=== PATIENT | female | born 1990 | race Caucasian/White ===

== ENCOUNTER 2017-03-11 01:53 | Observation (INO) | payer BC ==
[2017-03-11] VITALS (20 sets, daily range): BP systolic 92–138; BP diastolic 50–80; PULSE 62–110; RESP 15–20; TEMP 98.2; Ht 162.6 cm; Wt 66.0 kg
[~2017-03-11] VITALS: Ht 162.6 cm; Wt 66.0 kg
[2017-03-11] MEDS ORDERED: ONDANSETRON 4 MG INJ IV STA (02:27)
[2017-03-11] MEDS ORDERED: SOD CHLORIDE 0.9% 1,000 ML IV STA (02:27)
[2017-03-11] MEDS ORDERED: HYDROmorphONE 1 MG/ML SYG IV STA ×2 (02:27→06:15)
[2017-03-11 02:47] LABS: ADD SCAN DIFF NO
[2017-03-11 02:52] LABS: BASOPHILS % 0.2 % (0.0-2.0); EOSINOPHILS # 0.3 10^3/ul (0.0-0.5); EOSINOPHILS % 2.6 % (0.0-7.0); HEMATOCRIT 42.8 % (37.0-47.0); HEMOGLOBIN 14.6 g/dl (12.0-16.0); LYMPHOCYTES # 1.8 10^3/ul (0.8-2.9); LYMPHOCYTES % 14.6 % (15.0-51.0); MEAN CORPUSCULAR HGB CONC 34.1 g/dl (32.0-37.0); MEAN CORPUSCULAR VOLUME 88.1 fl (82.0-101.0); MEAN PLATELET VOLUME 10.3 fl (7.4-10.4); MONOCYTE # 0.7 10^3/ul (0.3-0.9); MONOCYTES % 5.4 % (0.0-11.0); NEUTROPHIL # 9.6 10^3/ul (1.6-7.5); NEUTROPHILS % 76.8 % (39.0-77.0); PLATELET COUNT 207 10^3/UL (140-415); RED BLOOD COUNT 4.86 10^6/ul (4.20-5.40); RED CELL DISTRIBUTION WIDTH 11.7 % (11.5-14.5); WHITE BLOOD COUNT 12.5 10^3/ul (4.8-10.8)
[2017-03-11] MEDS ORDERED: IBUP200C11 PO (02:55)
[2017-03-11 03:08] LABS: ALBUMIN 4.9 g/dl (3.3-4.9)
[2017-03-11 03:09] LABS: POTASSIUM 3.4 mmol/L (3.5-5.1)
[2017-03-11 03:11] LABS: BILIRUBIN,INDIRECT 0.3 mg/dl (0-1.1); BILIRUBIN,TOTAL 0.3 mg/dl (0.2-1.3); CREATININE 0.82 mg/dl (0.44-1.00)
[2017-03-11] MEDS ORDERED: SOD CHLORIDE 0.9% 100 ML ONE (03:11)
[2017-03-11] MEDS ORDERED: IOHEXOL 300MG/ML 150 ML BTL ONE (03:11)
[2017-03-11 03:12] LABS: ALBUMIN/GLOBULIN RATIO 1.44; CALCIUM 9.5 mg/dl (8.4-10.2); TOTAL PROTEIN 8.3 g/dl (6.1-8.1)
[2017-03-11 03:27] LABS: ADD UMIC YES; URINE BILIRUBIN (Dip) NEGATIVE (NEGATIVE); URINE BLOOD (Dip) TRACE (NEGATIVE); URINE COLOR LT. YELLOW (YELLOW); URINE GLUCOSE (Dip) NEGATIVE (NEGATIVE); URINE KETONES (Dip) NEGATIVE (NEGATIVE); URINE LEUKOCYTE ESTERASE (Dip) NEGATIVE (NEGATIVE); URINE NITRITE (Dip) NEGATIVE (NEGATIVE); URINE TOTAL PROTEIN (Dip) NEGATIVE (NEGATIVE); URINE UROBILINOGEN (Dip) 0.2 E.U./dL (0.1-1.0)
[2017-03-11 03:45] LABS: URINE RBCS 0-2 /HPF (0)
[2017-03-11 03:46] LABS: BACTERIA,URINE OCCASIONAL; SQUAMOUS EPITHELIAL CELL,UR MANY
--- NOTE | 2017-03-11 04:33 | RADRPT ---
PROCEDURE: CT Abdomen and pelvis with contrast. CLINICAL INDICATION: Abdominal pain. TECHNIQUE: CT scan of the abdomen and pelvis with contrast was performed on a multi-detector high -resolution CT scanner. The patient was scanned following the uncomplicated administration of 100 c c of Omnipaque 300 intravenous contrast. Coronal and sagittal reformatted images were obtained from the axial source images. Images were reviewed on a high-resolution PACS workstation. One or more of the following dose reduction techniques were used: - Automated exposure control. - Adjustment of the mA and/or kV according to patient size. - Use of iterative reconstruction technique. Exam CTD/vol = 9.51 mGy. Total exam DLP = 529.68 mGy-cm. COMPARISON: None. FINDINGS: Evaluation of the lung bases demonstrates no pleural or parenchymal disease. Abdomen: The liver is normal in size. There is no focal mass or dilatation of the biliary tree. T he gallbladder is not distended. The spleen, pancreas and bilateral adrenal glands are within nilesh l limits. Bilateral kidneys are normal in size with symmetric enhancement. There is no focal mass, hydronephrosis or hydroureter. There is no retroperitoneal adenopathy. The abdominal aorta is of normal caliber. There is a distended and fluid filled appendix extending medial and inferior to the cecum measuring up to 11 mm in diameter with mild adjacent stranding. There is an appendicolith within the distal a ppendix measuring 5 x 4 mm. There is no bowel obstruction or free air. There is no diverticulosis or diverticulitis. Pelvis: The bladder is unremarkable. There is an intrauterine device in place. There is a cystic structure within the right adnexa measuring 3.2 x 2.8 cm. There is a cystic structure within the le ft adnexa measuring 1.9 x 1.5 cm. There is mild pelvic free fluid. There is no significant pelvic adenopathy. Evaluation of the osseous structures demonstrates no suspicious lytic or blastic lesion. IMPRESSION: Acute appendicitis. Right adnexal 3.2 cm cyst. Left adnexal 1.9 cm cyst. Mild pelvic free fluid. Intrauterine device. A call report was made to Dr. Cruz at 04:30 a.m. .Britton Fuller MD, MD Date Time Electronically viewed and signed by .Britton Fuller MD, MD on 03/11/2017 04:33 .T/
--- NOTE | 2017-03-11 04:38 | ERA ---
ER Documentation Chief Complaint Date/Time DATE: 03/11/17 TIME: 04:34 Chief Complaint diffuse abd pain since 5 hours ago HPI This is a 26-year-old female who says she had a sudden onset of right lower quadrant/right adnexal pain 4 hours prior to arrival. She says the pain is now more diffuse. She has no vomiting diarrhea nausea no lack of appetite no recent fever. She says the pain is not worse with movement or walking. She denies any prior history of ovarian cyst. No vaginal discharge no hematuria or dysuria. She describes the pain as sharp and constant and nonradiating ROS All systems reviewed and are negative except as per history of present illness. Medications Home Meds Reported Medications Ibuprofen* (Advil*) 200 Mg Capsule, 200 MG PO Q6H Y for PAIN, CAP 03/11/17 Allergies Allergies: Coded Allergies: Penicillins (Verified Allergy, Unknown, 03/11/17) PMhx/Soc Medical and Surgical Hx: pt denies Medical Hx, pt denies Surgical Hx Hx Alcohol Use: Yes Hx Substance Use: Yes (MARIJUANA) Hx Tobacco Use: No Smoking Status: Never smoker FmHx Family History: No coronary disease Physical Exam Vitals Vital Signs Date Time Temp Pulse Resp B/P Pulse Ox O2 Delivery O2 Flow Rate FiO2 03/11/17 01:57 98.4 96 20 140/97 98 Physical Exam Const: Well-developed, well-nourished Head: Atraumatic, normocephalic Eyes: Normal Conjunctiva, PERRLA, EOMI, normal sclera, no nystagmus ENT: Normal External Ears, Nose and Mouth, moist mucus membranes. Neck: Full range of motion. No meningismus, no lymphadenopathy. Resp: Clear to auscultation bilaterally, no wheezing, rhonchi, rales Cardio: Regular rate and rhythm, no murmurs, S1 S2 present Abd: Soft, moderate right lower quadrant tenderness, mild Rovsing sign , tenderness in the mid abdominal region as well., non distended. Normal bowel sounds, no guarding or rebound, no pulsitile abdominal masses or bruits Skin: No petechiae or rashes, no ecchymosis , no maculopapular rash Back: No midline or flank tenderness Ext: No cyanosis, or edema, FROM x 4, normal inspection, neurovascularly intact x 4 Neur: Awake and alert, STR 5/5 x 4, sensation intact x 4, no focal findings, cerebellum intact Psych: Normal Mood and Affect Result Diagram: 03/11/1722403/11/17 022 Results 24 hrs Laboratory Tests Test 03/11/17 02:25 03/11/17 02:40 White Blood Count 12.510^3/ul Red Blood Count 4.8610^6/ul Hemoglobin 14.6g/dl Hematocrit 42.8% Mean Corpuscular Volume 88.1fl Mean Corpuscular Hemoglobin 30.0pg Mean Corpuscular Hemoglobin Concent 34.1g/dl Red Cell Distribution Width 11.7% Platelet Count 25540^3/UL Mean Platelet Volume 10.3fl Neutrophils % 76.8% Lymphocytes % 14.6% Monocytes % 5.4% Eosinophils % 2.6% Basophils % 0.2% Nucleated Red Blood Cells % 0.0/100WBC Neutrophils # 9.610^3/ul Lymphocytes # 1.810^3/ul Monocytes # 0.710^3/ul Eosinophils # 0.310^3/ul Basophils # 0.010^3/ul Nucleated Red Blood Cells # 0.010^3/ul Sodium Level 143mmol/L Potassium Level 3.4mmol/L Chloride Level 103mmol/L Carbon Dioxide Level 27mmol/L Anion Gap 16 Blood Urea Nitrogen 18mg/dl Creatinine 0.82mg/dl Glucose Level 120mg/dl Calcium Level 9.5mg/dl Total Bilirubin 0.3mg/dl Direct Bilirubin 0.00mg/dl Indirect Bilirubin 0.3mg/dl Aspartate Amino Transf (AST/SGOT) 21IU/L Alanine Aminotransferase (ALT/SGPT) 29IU/L Alkaline Phosphatase 77IU/L Total Protein 8.3g/dl Albumin 4.9g/dl Globulin 3.40g/dl Albumin/Globulin Ratio 1.44 Urine Color LT. YELLOW Urine Clarity CLEAR Urine pH 6.0 Urine Specific [place] 1.025 Urine Ketones NEGATIVE Urine Nitrite NEGATIVE Urine Bilirubin NEGATIVE Urine Urobilinogen 0.2 E.U./dL Urine Leukocyte Esterase NEGATIVE Urine Microscopic RBC 0-2/HPF Urine Microscopic WBC 2-5/HPF Urine Squamous Epithelial Cells MANY Urine Bacteria OCCASIONAL Urine Hemoglobin TRACE Urine Glucose NEGATIVE% Urine Total Protein NEGATIVE Current Medications Medications (Trade) Dose Ordered Sig/Scot Route PRN Reason Start Time Stop Time Status Last Admin Dose Admin Sodium Chloride (NS) 1,000 ml @ 1,000 mls/hr Q1H STAT IV 03/11/17 02:27 03/11/17 03:26 DC 03/11/17 02:41 Hydromorphone HCl (Dilaudid) 1 mg ONCE STAT IV 03/11/17 02:27 03/11/17 02:28 DC 03/11/17 02:41 Ondansetron HCl 4 mg 4 mg ONCE STAT IV 03/11/17 02:27 03/11/17 02:28 DC 03/11/17 02:41 Sodium Chloride (NS) 100 ml @ ud STK-MED ONCE .ROUTE 03/11/17 03:11 03/11/17 03:12 DC 03/11/17 03:26 Iohexol (Omnipaque 300mg/ ml) 150 ml STK-MED ONCE .ROUTE 03/11/17 03:11 03/11/17 03:12 DC 03/11/17 03:26 Procedures/MDM PROCEDURE: CT Abdomen and pelvis with contrast. CLINICAL INDICATION: Abdominal pain. TECHNIQUE: CT scan of the abdomen and pelvis with contrast was performed on a multi-detector high-resolution CT scanner. The patient was scanned following the uncomplicated administration of 100 cc of Omnipaque 300 intravenous contrast. Coronal and sagittal reformatted images were obtained from the axial source images. Images were reviewed on a high-resolution PACS workstation. One or more of the following dose reduction techniques were used: - Automated exposure control. - Adjustment of the mA and/or kV according to patient size. - Use of iterative reconstruction technique. Exam CTD/vol = 9.51 mGy. Total exam DLP = 529.68 mGy-cm. COMPARISON: None. FINDINGS: Evaluation of the lung bases demonstrates no pleural or parenchymal disease. Abdomen: The liver is normal in size. There is no focal mass or dilatation of the biliary tree. The gallbladder is not distended. The spleen, pancreas and bilateral adrenal glands are within normal limits. Bilateral kidneys are normal in size with symmetric enhancement. There is no focal mass, hydronephrosis or hydroureter. There is no retroperitoneal adenopathy. The abdominal aorta is of normal caliber. There is a distended and fluid filled appendix extending medial and inferior to the cecum measuring up to 11 mm in diameter with mild adjacent stranding. There is an appendicolith within the distal appendix measuring 5 x 4 mm. There is no bowel obstruction or free air. There is no diverticulosis or diverticulitis. Pelvis: The bladder is unremarkable. There is an intrauterine device in place. There is a cystic structure within the right adnexa measuring 3.2 x 2.8 cm. There is a cystic structure within the left adnexa measuring 1.9 x 1.5 cm. There is mild pelvic free fluid. There is no significant pelvic adenopathy. Evaluation of the osseous structures demonstrates no suspicious lytic or blastic lesion. IMPRESSION: Acute appendicitis. Right adnexal 3.2 cm cyst. Left adnexal 1.9 cm cyst. Mild pelvic free fluid. Intrauterine device. A call report was made to Dr. Cruz at 04:30 a.m. .Britton Fuller MD, MD Date Time Electronically viewed and signed by .Britton Fuller MD, MD on 03/11/2017 04:33 .T/ CC: MARILYN CRUZ DO Patient will be given Rocephin and Flagyl IV as antibiotic coverage until surgery. Currently have a page out to general surgeon on-call doctor sonny We will admit for operative removal of the appendix Departure Diagnosis: Primary Impression: Appendicitis Qualified Code: K35.80 - Acute appendicitis, unspecified acute appendicitis type Condition: Stable MARILYN CRUZ DO March 11, 2017 04:38
[2017-03-11] MEDS ORDERED: CEFTRIAXONE 1 GM/50 ML (PMX) 50 ML IVPB ONE (05:00)
[2017-03-11] MEDS ORDERED: metroNIDAZOLE 500 MG/NS (PMX) 100 ML IVPB ONE (05:00)
[2017-03-11] MEDS ORDERED: SOD CHLORIDE 0.9% 1,000 ML IV SCH (05:23)
[2017-03-11] MEDS ORDERED: ONDANSETRON 4 MG INJ IV PRN ×2 (05:30→09:30)
[2017-03-11] MEDS ORDERED: ACETAMINOPHEN 325 MG TAB PO PRN (05:30)
[2017-03-11] MEDS ORDERED: DEXTROSE 5%-0.45% NACL 1,000 ML IV SCH (09:11)
--- NOTE | 2017-03-11 09:20 | HPN ---
Date/Time of Note Date/Time of Note DATE: 03/11/17 TIME: 09:20 Interval H&P Admission Note Pt. seen H&P reviewed: No system changes Pt. seen H&P reviewed. No system changes (I attest that I have seen and examined the patient and reviewed the operation in detail, as well as its risks , benefits and alternatives of the operation). I attest that I have seen and examined the patient and reviewed in detail the operation, and its associated risks, benefits and alternative. I have answered all the patient's questions to the best of my ability and the patient wishes to proceed. Please refer to rest of electronic medical record for additional updates. ZIA PURDY M.D. March 11, 2017 09:20
[2017-03-11] MEDS ORDERED: NACL 0.9% 3 ML SYG IV SCH (09:30)
[2017-03-11] MEDS ORDERED: morphine 2 MG INJ IV PRN (09:30)
--- NOTE | 2017-03-11 10:28 | HP ---
DATE OF ADMISSION: 03/11/2017 TIME SEEN: 7 a.m. CHIEF COMPLAINT: Abdominal pain. HISTORY OF PRESENT ILLNESS: The patient is a 26-year-old female with no significant past medical his tory who presented to the emergency department complaining of abdominal pain. The pain is diffuse, but mainly located in the right lower quadrant area with associated nausea but no vomiting. When the patient presented to the ER, her vitals were stable. A CT of the abdomen and pelvis shows acute appendicitis. Her ____ being seen by Dr. Rubin. LABORATORY VALUE: Shows a WBC of 12.5, potassium 3.4, otherwise CBC and CMP are within acceptable ra nge. REVIEW OF SYSTEMS: A 12-point review was performed, negative except as mentioned in HPI. PAST MEDICAL HISTORY: Denies. PAST SURGICAL HISTORY: Denies. SOCIAL HISTORY: Smokes marijuana. No history of tobacco or illicit drug use. ALLERGIES: PENICILLIN. HOME MEDICATION: Advil. PHYSICAL EXAMINATION: VITAL SIGNS: Stable. GENERAL: No acute distress, answering questions appropriately. HEENT: No obvious deformity. Pupils equal and react to light. Extraocular muscles intact. CARDIOVASCULAR: Regular rate and rhythm. No murmur or extra sounds. LUNGS: Clear. ABDOMEN: Soft with tenderness diffusely but mainly in the right lower quadrant area with no guardin g, no rigidity, no rebound tenderness. EXTREMITIES: No edema. NEUROLOGIC: No focal deficits. LABORATORY: WBC 12.5 and potassium 3.4, otherwise CBC and CMP are within normal limits. IMAGING: CT abdomen and pelvis shows acute appendicitis. IMPRESSION: 1. Acute appendicitis. 2. Abdominal pain, secondary to above. 3. Leukocytosis, secondary to acute appendicitis. 4. Mild hypokalemia. PLAN: Keep n.p.o. with IV fluid. We will provide pain medication and antiemetics as needed. We bret l follow up on recommendations for surgery. Will correct electrolytes as needed. Further workup and management per clinical course. Dictated By: ABIGAIL DELACRUZ/ELIE Conf#: [id number] DID#: [id number]
[2017-03-11] MEDS ORDERED: BUPIVACAINE 0.25%/EPI (SDV) 30 ML INJ ONE (10:33)
[2017-03-11] MEDS ORDERED: MIDAZOLAM 1 MG/ML 2 ML INJ ONE (10:42)
[2017-03-11] MEDS ORDERED: FENTAnyl 50 MCG/ML VIAL ONE (10:42)
[2017-03-11] MEDS ORDERED: SUCCINYLCHOLINE CHLORIDE 100 MG/5 ML SYG IV ONE (10:42)
[2017-03-11] MEDS ORDERED: PROPOFOL 20 ML ONE (10:42)
[2017-03-11] MEDS ORDERED: LIDOCAINE 1% (MDV) 20 ML INJ ONE (10:43)
[2017-03-11] MEDS ORDERED: ROPIVACAINE 0.2% 20 ML VIAL ONE (10:51)
[2017-03-11] MEDS ORDERED: DEXAMETHASONE 4 MG/ML 1 ML INJ ONE (11:05)
[2017-03-11] MEDS ORDERED: FAMOTIDINE 20 MG INJ ONE (11:05)
[2017-03-11] MEDS ORDERED: ONDANSETRON 4 MG INJ ONE (11:05)
--- NOTE | 2017-03-11 11:06 | CONS ---
[facility] INPATIENT CONSULTATION NOTE DATE OF CONSULTATION: 03/11/2017 PLACE OF SERVICE: [facility], 6th floor. IMPRESSION AND PLAN: A very pleasant 26-year-old young lady with a comorbidity of a BMI of 25 and a few other minor issues, presenting with an acute appendicitis. I consented the patient and family to have her undergo a laparoscopic and possible open appendectomy. I answered all their questions and they appeared to understand and agreed with the plan. With the above assessment, I have recommended the following: To the operating room for above. Thank you very much for allowing us to participate in the care of this very pleasant lady and her wonderful family. If there are any questions, please feel free to contact me at [phone] UPDATED CLINICAL SUMMARY. A very pleasant 26-year-old young lady with the only comorbidity of a BMI of 25, as well as SEVERELY ALLERGIC TO PENICILLIN, with rash and possible swelling, who was admitted through the emergency department at [facility] on 03/11/2017 with a diagnosis of acute appendicitis, supported by her history and physical, elevated white blood cell count to 12.5, as well as abdomen and pelvic CT scan on 03/11/2017 that demonstrated an acute appendicitis with a distended and fluid-filled appendix extending medial and inferior to the cecum, measuring up to 11 mm in diameter, with mild adjacent stranding. There was an appendicolith within the distal appendix measuring 4 x 5 mm and no bowel obstruction, free air, or other major findings. There was also a cystic structure within the right adnexa measuring 3.2 x 2.8 cm. COMORBIDITIES. 1. BMI of 25. 2. ALLERGIC TO PENICILLIN, with rash and some swelling reported as a child. 3. Cystic structure within the right adnexa measuring 3.2 x 2.8 cm. 4. Cystic structure within the left adnexa measuring 1.9 x 1.5 cm. 5. Acute appendicitis 03/11/2017, [facility]. DATE OF ADMISSION: 03/11/2017 HISTORY OF PRESENT ILLNESS: A very pleasant 26-year-old young lady with the above-mentioned comorbidities, whom we were kindly asked to consult regarding management of her acute appendicitis. The patient reported having a 1-day history of a few hours of right lower quadrant pain, without any associated vomiting, diarrhea, nausea or a change in appetite. The patient does have a history of ovarian cysts. No vaginal discharge, hematuria or dysuria reported. The patient reported her pain to be mainly in the right lower quadrant without significant radiation. It is sharp in nature and has never happened before. ALLERGIES: PENICILLIN, WITH RASH AND POSSIBLE SWELLING. 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 She does not report any history of tobacco smoking, but has used marijuana. No significant drinking and no intravenous drug use. FAMILY HISTORY: No major medical, surgical or oncologic problems reported in the family. REVIEW OF SYSTEMS: Other than the above-mentioned, there are no other pertinent positives or pertinent negatives in a complete 14-point review of systems. PHYSICAL EXAMINATION: GENERAL: The patient appears to be a very pleasant lady of descent, appearing her stated age, lying in bed comfortably and in no acute distress. Her BMI is 25.0. VITAL SIGNS: Temperature 97.8, blood pressure 111/59, pulse 79, respiratory rate 18, pulse oximetry 96% on room air. HEENT: Normocephalic and atraumatic. Extraocular muscles and hearing are grossly intact bilaterally and symmetrically. Sclerae are nonicteric. Oral cavity is clear; oral mucosa appeared to be pink and moist. Dentition: good. NECK: Supple. There is no lymphadenopathy or JVD. There is no submental, submandibular or supraclavicular lymphadenopathy. CHEST: Rises symmetrically with each breath; patient is breathing comfortably. There are no audible wheezes, rales or rhonchi on the gross exam. HEART: Pulse is regular and palpable on the right wrist. Capillary refill was normal. Carotid pulses are palpable bilaterally and symmetrically in the neck. EXTREMITIES: Lower extremities contain no pitting edema around the ankles bilaterally and symmetrically. ABDOMEN: Shows an abdomen that is soft, nondistended and mildly to moderately tender to palpation in the right lower quadrant, without any peritoneal signs or guarding. No evidence of organomegaly, caput medusae, engorged subcutaneous veins, or ascites. SKIN: Appears to be pink and feels warm to touch. NEUROLOGIC: Awake, alert, and follows commands appropriately. LABORATORY VALUES: As above. Imaging as above. Note that I personally reviewed all the available and pertinent images, and I agree in general with their overall reported findings. Dictated By: ZIA RUSSELL/ELIE Conf#: [id number] DID#: [id number] MTDD
[2017-03-11] MEDS ORDERED: MEPERIDINE 25 MG INJ IV PRN (12:00)
[2017-03-11] MEDS ORDERED: HYDROmorphONE (0.2 MG/ML) 10ML SYG IV PRN ×2 (12:00)
[2017-03-11] MEDS ORDERED: DIPHENHYDRAMINE 50 MG INJ IV PRN (12:00)
--- NOTE | 2017-03-11 12:12 | OPR ---
Date/Time of Note Date/Time of Note DATE: 03/11/17 TIME: 12:11 Operative Report Procedure Description [facility] INPATIENT OPERATIVE NOTE PLACE OF SERVICE: [facility] DATE OF SURGERY: 03/11/2017 PREOPERATIVE DIAGNOSIS: 1. Acute appendicitis 2. ALLERGIC TO PENICILLIN, with rash and some swelling reported as a child. 3. Cystic structure within the right adnexa measuring 3.2 x 2.8 cm. 4. Cystic structure within the left adnexa measuring 1.9 x 1.5 cm. 5. Acute appendicitis 03/11/2017, [facility]. 6. BMI of 25. POSTOPERATIVE DIAGNOSIS: 1. Acute appendicitis 2. ALLERGIC TO PENICILLIN, with rash and some swelling reported as a child. 3. Cystic structure within the right adnexa measuring 3.2 x 2.8 cm. 4. Cystic structure within the left adnexa measuring 1.9 x 1.5 cm. 5. Acute appendicitis 03/11/2017, [facility]. 6. BMI of 25. OPERATION: 1. Laparoscopic appendectomy SURGEON: Zia Purdy M.D. MEDIA PRODUCER: None ANESTHESIA: General endotracheal tube anesthesia ANESTHESIOLOGIST: Scotty Beckett M.D. BRIEF SUMMARY: An otherwise uncomplicated laparoscopic appendectomy was performed with findings of non-perforated appendicitis. UPDATED CLINICAL SUMMARY. A very pleasant 26-year-old young lady with the only comorbidity of a BMI of 25, as well as SEVERELY ALLERGIC TO PENICILLIN, with rash and possible swelling, who was admitted through the emergency department at [facility] on 03/11/2017 with a diagnosis of acute appendicitis, supported by her history and physical, elevated white blood cell count to 12.5, as well as abdomen and pelvic CT scan on 03/11/2017 that demonstrated an acute appendicitis with a distended and fluid-filled appendix extending medial and inferior to the cecum, measuring up to 11 mm in diameter, with mild adjacent stranding. There was an appendicolith within the distal appendix measuring 4 x 5 mm and no bowel obstruction, free air, or other major findings. There was also a cystic structure within the right adnexa measuring 3.2 x 2.8 cm. COMORBIDITIES. 1. BMI of 25. 2. ALLERGIC TO PENICILLIN, with rash and some swelling reported as a child. 3. Cystic structure within the right adnexa measuring 3.2 x 2.8 cm. 4. Cystic structure within the left adnexa measuring 1.9 x 1.5 cm. 5. Acute appendicitis 03/11/2017, [facility]. BRIEF HISTORY: The patient is a very pleasant 26-year-old young lady with the only comorbidity of a BMI of 25, as well as SEVERELY ALLERGIC TO PENICILLIN, with rash and possible swelling, who was admitted through the emergency department at [facility] on 03/11/2017 with a diagnosis of acute appendicitis, supported by her history and physical, elevated white blood cell count to 12.5, as well as abdomen and pelvic CT scan on 03/11/2017 that demonstrated an acute appendicitis with a distended and fluid-filled appendix extending medial and inferior to the cecum, measuring up to 11 mm in diameter, with mild adjacent stranding. There was an appendicolith within the distal appendix measuring 4 x 5 mm and no bowel obstruction, free air, or other major findings. I met with the patient and family and counseled them regarding the possible options of treatment, and I strongly suggested a laparoscopic, possible open appendectomy. We reviewed the operation in detail as well as the risks, benefits, alternatives, and expected outcomes of this operation. After careful consideration of all the risks, benefits, and alternatives, the patient and family appeared to understand those risks and wished to proceed with surgery. For a detailed report of my consultation with patient and family, please refer to my separate consultation note. STATEMENT OF THE INFORMED CONSENT: The patient and family appeared to understand the risks of the operation to include, but not be limited to risk of postoperative pain and scar tissue, possible infection or bleeding requiring other interventions such as opening the wound, placement of drainage catheters, or other operative interventions; possible injury to surrounding to structures including bowel, bladder, bile duct, or blood vessels, or solid organs such as liver, kidney, or pancreas requiring other interventions or procedures; possible leakage of bowel from anastomotic sites or suture lines causing significant increase in morbidity and mortality and requiring multiple interventions including but not limited to, placement of drainage catheters, imaging studies, as well as operative interventions; possible other source of sepsis such as urinary tract infections or pneumonias, or other sources of potentially life threatening problems such as deep venous thrombus formation causing pulmonary embolism, myocardial arrhythmias and infarctions, and even . After careful consideration of all their options, the patient and family appeared to understand and wished to proceed with surgery. DESCRIPTION OF PROCEDURE: After obtaining informed consent, the patient was brought into the operating room and was placed in a normal supine position, where successful general endotracheal tube anesthesia was performed. Intravenous access was already in place and intravenous antimicrobials had been appropriately chosen and dosed prior to the operation. The patient's abdominal skin was prepped and draped from the nipple line down to the level of the upper thighs in the usual sterile fashion. We then called a surgical time-out where the patient's identification, date of , nature of the operation, allergies , presence of intravenous antimicrobials, presence of needed equipment, and any other concerns were reviewed and agreed upon by all members of the operating room team. We then started the operation by placing a 5 mm skin incision in the left lower quadrant and then introduced a 5 mm [employer] trocar into the peritoneal space, visualizing all the layers of the abdominal wall as we entered. Note that there was no indication of any injury to underlying structures with our entry into the peritoneal space. We insufflated the abdominal cavity to a maximum pressure of 15 mmHg and again inspected the area of insertion and ensured no obvious injury to underlying structures prior to inspecting the abdominal cavity and showing no obvious pus, bowel contents, or other abnormal features. We could not see the appendix very well. We, therefore, injected the future sites of our other trocars with 0.25% Marcaine with epinephrine and placed a 5 mm [employer] trocar into the midline suprapubic area, taking care not to injure the bladder. We also placed a 12 mm trocar in the umbilical midline area, all under direct visualization. With our instruments in place, we had excellent visualization and access to the right lower quadrant. We then identified the appendix, which was inflamed but had a normal base coming out of the cecum. I then went ahead and used judicious amount of cautery as well as mostly blunt dissection to circumferentially isolate the base of the appendix and then transected this using one firing of the white load of the Endo -VERONICA stapler. We also repeated the firing on the mesentery of the appendix and completely disconnected the organ from the colon, delivered this out through the 12 mm trocar site inside of an EndoCatch bag without having to enlarge the fascial defect as well as without contaminating the wound. The specimen was sent to Pathology for further analysis. We then ensured adequate hemostasis and bile stasis, removed all our equipment including the pneumoperitoneum from the abdominal cavity prior to closing the infraumbilical fascia with 1 figure-of- eight 0 Vicryl suture on a UR-6 needle, washing the wounds with copious amounts of normal saline, injecting the initial insertion point of the trocar with 0.25 % Marcaine with epinephrine, and then closing the skin using interrupted 4-0 Monocryl sutures. Light dressing was then applied. At the end of the operation, both the sponge count and needle count were reportedly correct x2. The patient tolerated the procedure without any reported complications. ESTIMATED BLOOD LOSS: Less than 10 mL. BLOOD OR BLOOD PRODUCT TRANSFUSIONS: None to my knowledge. SPECIMENS: 1. Appendix COMPLICATIONS: None. DISPOSITION: Recovery area. Disclaimer: Inadvertent spelling and grammatical errors are likely due to EHR/ dictation software use and do not reflect on the quality of delivered patient care. ZIA PURDY M.D. March 11, 2017 12:12
[2017-03-11] MEDS ORDERED: HYDROmorphONE 1 MG/ML SYG IV PRN ×2 (12:30)
[2017-03-11] MEDS ORDERED: BISACODYL 10 MG SUPP PR PRN (12:30)
[2017-03-11] MEDS ORDERED: HYDROCODONE/APAP (5/325) TAB PO PRN ×2 (12:30)
[2017-03-11] MEDS ORDERED: NA PHOSPHATE/BIPHOS 133 ML ENEMA PR PRN (12:30)
[2017-03-11] MEDS ORDERED: DOCUSATE SODIUM 100 MG CAP PO PRN (12:30)
[2017-03-11] MEDS: D5W-0.45 NACL + KCL 20 MEQ 1,000 ML IV SCH ×2 (14:15→22:12)
[2017-03-11] MEDS: ENOXAPARIN 40 MG/0.4 ML SYG SC SCH (17:50)
[2017-03-12 05:38] LABS: ADD SCAN DIFF NO
[2017-03-12 05:41] LABS: BASOPHILS % 0.1 % (0.0-2.0); EOSINOPHILS % 0.2 % (0.0-7.0); HEMATOCRIT 39.7 % (37.0-47.0); HEMOGLOBIN 13.3 g/dl (12.0-16.0); LYMPHOCYTES # 1.7 10^3/ul (0.8-2.9); LYMPHOCYTES % 13.3 % (15.0-51.0); MEAN CORPUSCULAR HEMOGLOBIN 29.8 pg (29.0-33.0); MEAN CORPUSCULAR HGB CONC 33.5 g/dl (32.0-37.0); MEAN CORPUSCULAR VOLUME 88.8 fl (82.0-101.0); MEAN PLATELET VOLUME 10.2 fl (7.4-10.4); MONOCYTE # 0.9 10^3/ul (0.3-0.9); MONOCYTES % 7.2 % (0.0-11.0); PLATELET COUNT 197 10^3/UL (140-415); RED BLOOD COUNT 4.47 10^6/ul (4.20-5.40); RED CELL DISTRIBUTION WIDTH 11.7 % (11.5-14.5); WHITE BLOOD COUNT 12.7 10^3/ul (4.8-10.8)
[2017-03-12 06:09] LABS: ALBUMIN 3.7 g/dl (3.3-4.9); ALBUMIN/GLOBULIN RATIO 1.23; BILIRUBIN,INDIRECT 0.4 mg/dl (0-1.1); BILIRUBIN,TOTAL 0.4 mg/dl (0.2-1.3); CALCIUM 9.2 mg/dl (8.4-10.2); CREATININE 0.69 mg/dl (0.44-1.00); MAGNESIUM 1.9 mg/dl (1.7-2.5); PHOSPHORUS 3.9 mg/dl (2.5-4.9); POTASSIUM 3.7 mmol/L (3.5-5.1); TOTAL PROTEIN 6.7 g/dl (6.1-8.1)
[2017-03-12 07:55] VITALS: BP 101/63; RESP 20
[2017-03-12] MEDS: D5W-0.45 NACL + KCL 20 MEQ 1,000 ML IV SCH (08:12)
[2017-03-12] MEDS: ENOXAPARIN 40 MG/0.4 ML SYG SC SCH (08:50)
[2017-03-12] MEDS ORDERED: FAMOTIDINE 20 MG INJ IV SCH (09:00)
[2017-03-12] MEDS ORDERED: DOCU-216 PO (09:53)
--- NOTE | 2017-03-12 09:55 | PDOCDIS ---
Discharge Instructions DIAGNOSIS Discharge Diagnosis: ACUTE APPENDICITIS CONDITION Patient Condition: Stable HOME CARE INSTRUCTIONS: Special Diet: REG DIET FOLLOW UP/APPOINTMENTS Appointments 1. Follow up with Dr. Kingston Rubin in one week LISHA MENSAH March 12, 2017 09:55
[2017-03-12] MEDS ORDERED: HYDR-3498 PO (11:53)
--- NOTE | 2017-03-12 15:05 | DS ---
Date/Time of Note Date/Time of Note DATE: 03/12/17 TIME: 15:05 Discharge Summary Admission/Discharge Info Admit Date/Time March 11, 2017 at 05:24 Discharge Date/Time March 12, 2017 at 12:20 Final Diagnosis 1. Acute appendicitis Patient Condition: Stable Consults 1. Dr. Kingston Rubin Hospital Course This is a 26-year-old female with a past medical history came to [facility] due to reports of abdominal pain. Patient did have diffuse abdominal pain more notably on right lower abdominal quadrant. She did come to [facility] and did have CT scan of the abdomen that did show acute appendicitis. She was placed on IV hydration and analgesics. She was also seen by surgeon and did undergo a laparoscopic appendectomy. She did tolerate well and was able to tolerate diet. During the course of stay she did improve. The plan of care was discussed with patient and patient did verbalize understanding. On the day of discharge patient was in stable condition Discussed plan of care with Dr. Greenfield Discharge process 40 minutes Home Meds Active Scripts Hydrocodone Bit-Acetaminophen (Hydrocodone Bit-APAP) 5-325MG Tablet, 2 TAB PO Q4H Y for PAIN LEVEL 7-10, #30 TAB Prov:LISHA MENSAH 03/12/17 Docusate Sodium (Dok) 100 Mg Capsule, 100 MG PO BID Y for CONSTIPATION, #30 CAP Prov:LISHA MENSAH 03/12/17 Reported Medications Ibuprofen* (Advil*) 200 Mg Capsule, 200 MG PO Q6H Y for PAIN, CAP 03/11/17 Follow-up Plan CONDITION Patient Condition: Stable HOME CARE INSTRUCTIONS: Special Diet: REG DIET FOLLOW UP/APPOINTMENTS Appointments 1. Follow up with Dr. Kingston Rubin in one week Primary Care Provider Gonsalo Marquez Pending Labs Laboratory Tests Test 03/12/17 05:30 White Blood Count 12.710^3/ul (4.8-10.8) Red Blood Count 4.4710^6/ul (4.20-5.40) Hemoglobin 13.3g/dl (12.0-16.0) Hematocrit 39.7% (37.0-47.0) Mean Corpuscular Volume 88.8fl (82.0-101.0) Mean Corpuscular Hemoglobin 29.8pg (29.0-33.0) Mean Corpuscular Hemoglobin Concent 33.5g/dl (32.0-37.0) Red Cell Distribution Width 11.7% (11.5-14.5) Platelet Count 58555^3/UL (140-415) Mean Platelet Volume 10.2fl (7.4-10.4) Neutrophils % 79.0% (39.0-77.0) Lymphocytes % 13.3% (15.0-51.0) Monocytes % 7.2% (0.0-11.0) Eosinophils % 0.2% (0.0-7.0) Basophils % 0.1% (0.0-2.0) Nucleated Red Blood Cells % 0.0/100WBC (0.0-0.0) Neutrophils # 10.010^3/ul (1.6-7.5) Lymphocytes # 1.710^3/ul (0.8-2.9) Monocytes # 0.910^3/ul (0.3-0.9) Eosinophils # 0.010^3/ul (0.0-0.5) Basophils # 0.010^3/ul (0.0-0.1) Nucleated Red Blood Cells # 0.010^3/ul (0.0-0.0) Sodium Level 138mmol/L (135-144) Potassium Level 3.7mmol/L (3.5-5.1) Chloride Level 107mmol/L (97-110) Carbon Dioxide Level 27mmol/L (21-31) Anion Gap 8 (8-16) Blood Urea Nitrogen 7mg/dl (7-20) Creatinine 0.69mg/dl (0.44-1.00) Glucose Level 97mg/dl (70-220) Calcium Level 9.2mg/dl (8.4-10.2) Phosphorus Level 3.9mg/dl (2.5-4.9) Magnesium Level 1.9mg/dl (1.7-2.5) Total Bilirubin 0.4mg/dl (0.2-1.3) Direct Bilirubin 0.00mg/dl (0.00-0.20) Indirect Bilirubin 0.4mg/dl (0-1.1) Aspartate Amino Transf (AST/SGOT) 19IU/L (15-46) Alanine Aminotransferase (ALT/SGPT) 27IU/L (13-69) Alkaline Phosphatase 56IU/L (42-121) Total Protein 6.7g/dl (6.1-8.1) Albumin 3.7g/dl (3.3-4.9) Globulin 3.00g/dl (1.3-3.2) Albumin/Globulin Ratio 1.23 LISHA MENSAH March 12, 2017 15:05
== END 2017-03-12 12:20 | disposition home or self-care (01) ==
LOC: E/R 01:53 → MS2 05:24
PROVIDERS: ADMIT Internal Medicine; ATTEND Internal Medicine
DX: K35.80 Unspecified acute appendicitis (principal); Z88.0 Allergy status to penicillin; E87.6 Hypokalemia
CPT/HCPCS: 44970; 74177; 80053; 81001; 83735; 84100; 85025; 88304; 96361; 96372; 96374; 96375; 96376; 99285; G0378; J0696; J1100; J1170; J1650; J2250; J2270; J2405; J3010; J3480; J7030; J7042; J7999; Q9967; J2795